=== PATIENT | female | born 1960 | race Two or more races ===

== ENCOUNTER 2017-11-06 10:01 | Outpatient (CLI) | payer OTHER ==
[~2017-11-06 10:01] MED LIST: CALCIO DEL MAR500 MG; NABUMETONE750 MG PO; ORPH100T PO
== END 2017-11-06 13:03 | disposition home or self-care (01) ==
LOC: SONOGRAMA 10:01 → MAMO-SONO 11-10 09:45
DX: N18.2 Chronic kidney disease, stage 2 (mild) (principal)

== ENCOUNTER 2018-07-09 10:55 | Outpatient (CLI) | payer OTHER | END 2018-07-09 16:50 | disposition home or self-care (01) | LOC: RAD 10:55 | DX: J45.998 Other asthma (principal); J20.8 Acute bronchitis due to other specified organisms ==

== ENCOUNTER → 2019-01-04 | Outpatient (CLI) | payer OTHER | END | disposition home or self-care (01) | LOC: MAMO-SONO 12-28 10:45 | DX: N64.4 Mastodynia (principal); Z12.31 Encounter for screening mammogram for malignant neoplasm of breast ==

== ENCOUNTER → 2019-01-12 | Outpatient (CLI) | payer OTHER | END | disposition home or self-care (01) | LOC: NUCLEAR 01-04 14:00 | DX: M81.0 Age-related osteoporosis without current pathological fracture (principal); M85.80 Other specified disorders of bone density and structure, unspecified site ==

== ENCOUNTER → 2019-03-11 | Emergency (ER) | payer OTHER ==
[~2019-03-11] VITALS: Ht 160 cm; Wt 81.2 kg
[~2019-03-11] MED LIST changes: +CARDIZEM CD120 MG; +CRESTOR10 MG; +PROMETRIUM200 MG
== END | disposition home or self-care (01) ==
LOC: ER 08:39
DX: K59.09 Other constipation (principal)

== ENCOUNTER 2020-08-01 10:37 | Outpatient (CLI) | payer OTHER | END 2020-08-01 11:02 | disposition home or self-care (01) | LOC: MAMO-SONO 10:37 | PROVIDERS: ATTEND Specialist | DX: N60.11 Diffuse cystic mastopathy of right breast (principal); N60.12 Diffuse cystic mastopathy of left breast; N95.1 Menopausal and female climacteric states; R92.2 Inconclusive mammogram ==

== ENCOUNTER 2021-05-02 10:25 | Outpatient (CLI) | payer OTHER | END 2021-05-02 10:38 | disposition home or self-care (01) | LOC: TOM 10:25 | PROVIDERS: ATTEND Family Medicine | DX: J98.8 Other specified respiratory disorders (principal); G44.89 Other headache syndrome ==

== ENCOUNTER 2021-05-24 19:16 | Emergency (ER) | payer OTHER ==
[~2021-05-24] VITALS: Ht 162.6 cm; Wt 83.9 kg
[2021-05-25] MEDS ORDERED: PEPCID AC20 MG PO (08:03)
[2021-05-25] MEDS ORDERED: LEVSIN0.125 MG PO (08:03)
[2021-05-25] MEDS ORDERED: METRONIDAZOLE500 MG PO (08:03)
[2021-05-25] MEDS ORDERED: INTESTINEX680 M2 PO (08:03)
[2021-05-25] MEDS ORDERED: PROTONIX20 MG PO (08:03)
[2021-05-25] MEDS ORDERED: CIPROFLOXACIN500 MG PO (08:03)
[2021-05-25] MEDS ORDERED: PERCOCET 5-3251 EACH PO (08:03)
[2021-05-25] MEDS ORDERED: CARAFATE1 GM PO (08:05)
== END 2021-05-25 08:16 | disposition home or self-care (01) ==
LOC: ER 19:16
DX: K57.33 Diverticulitis of large intestine without perforation or abscess with bleeding (principal)

== ENCOUNTER 2021-08-12 10:43 | Outpatient (CLI) | payer OTHER ==
[~2021-08-12 10:43] MED LIST changes: +CARAFATE1 GM PO; +CIPROFLOXACIN500 MG PO; +INTESTINEX680 M2 PO; +LEVSIN0.125 MG PO; +METRONIDAZOLE500 MG PO; +PEPCID AC20 MG PO; +PERCOCET 5-3251 EACH PO; +PROTONIX20 MG PO
== END 2021-08-12 11:00 | disposition home or self-care (01) ==
LOC: RAD 10:43
PROVIDERS: ATTEND Physical Medicine & Rehabilitation
DX: M54.59 Other low back pain (principal); M25.551 Pain in right hip; M25.552 Pain in left hip; M25.561 Pain in right knee; M25.562 Pain in left knee

== ENCOUNTER 2022-05-22 10:23 | Outpatient (CLI) | payer OTHER | END 2022-05-22 10:34 | disposition home or self-care (01) | LOC: EDBD 10:23 → SONOGRAMA 10:23 | PROVIDERS: ATTEND Internal Medicine | DX: K81.9 Cholecystitis, unspecified (principal) ==

== ENCOUNTER 2022-05-28 09:13 | Outpatient (CLI) | payer OTHER | END 2022-05-28 09:18 | disposition home or self-care (01) | LOC: NUCLEAR 09:13 | PROVIDERS: ATTEND Internal Medicine | DX: K83.9 Disease of biliary tract, unspecified (principal); K81.0 Acute cholecystitis | CPT/HCPCS: 78227; A9510 ==

== ENCOUNTER 2023-07-14 11:31 | Emergency (ER) | payer OTHER ==
[~2023-07-14] VITALS: Ht 162.6 cm; Wt 79.4 kg
[2023-07-14] MEDS ORDERED: CRESTOR5 MG (12:08)
[2023-07-14 16:37] LABS: HEMATOCRIT 39.9 % (36.0-45.00); HEMOGLOBIN 13.6 g/dL (12.0-15.00); MEAN CELL VOLUME 93.4 fL (80.00-100.00); MEAN CORPUSCULAR HEMOGLOBIN 31.9 pg (27.00-32.0); MEAN CORPUSCULAR HGB CONC 34.2 g/dl (32.0-36.0); PLATELET COUNT 280 K/uL (150-450); RED BLOOD COUNT 4.28 M/uL (4.00-6.00); RED CELL DISTRIBUTION WIDTH 13.7 % (11.5-14.5)
== END 2023-07-14 19:52 | disposition home or self-care (01) ==
LOC: ER 11:31
PROVIDERS: General Practice
DX: N76.4 Abscess of vulva (principal); I10 Essential (primary) hypertension

== ENCOUNTER 2024-07-18 10:11 | Emergency (ER) | payer OTHER ==
[~2024-07-18] VITALS: Ht 162.6 cm; Wt 81.6 kg
[~2024-07-18 10:11] MED LIST changes: +CRESTOR5 MG
[2024-07-18] MEDS ORDERED: KETOROLAC TROMETHAMINE 60 MG VIAL IM ONE (12:00)
[2024-07-18] MEDS ORDERED: ORPHENADRINE CITRATE 30 MG/ML AMPUL IM ONE (12:00)
[2024-07-18] MEDS ORDERED: NORFLEX100MG PO (12:05)
[2024-07-18] MEDS ORDERED: TRAM1TAB98 PO (12:05)
[2024-07-18] MEDS ORDERED: ORPHENADRINE CITRATE 100 MG TABLET PO ONE (13:00)
== END 2024-07-18 12:59 | disposition home or self-care (01) ==
LOC: ER 10:13
DX: M54.30 Sciatica, unspecified side (principal); M54.9 Dorsalgia, unspecified; I10 Essential (primary) hypertension

== ENCOUNTER 2024-07-18 14:56 | Outpatient (CLI) | payer OTHER ==
[~2024-07-18 14:56] MED LIST changes: +NORFLEX100MG PO; +TRAM1TAB98 PO
== END 2024-07-18 15:08 | disposition home or self-care (01) ==
LOC: MRI 14:56
PROVIDERS: ATTEND Internal Medicine
DX: M54.31 Sciatica, right side (principal); M51.17 Intervertebral disc disorders with radiculopathy, lumbosacral region
CPT/HCPCS: 72148

== ENCOUNTER 2025-02-13 11:57 | Emergency (ER) | payer OTHER ==
[~2025-02-13] VITALS: Ht 162.6 cm; Wt 81.6 kg
[2025-02-13] MEDS ORDERED: KETOROLAC TROMETHAMINE 60 MG VIAL IM STA (13:41)
[2025-02-13] MEDS ORDERED: DEXAMETHASONE SODIUM PHOSPHATE 4 MG/ML VIAL IM STA (13:41)
[2025-02-13] MEDS ORDERED: DEXAMETHASONE SODIUM PHOSPHATE 4 MG/ML VIAL ONE (13:56)
[2025-02-13] MEDS ORDERED: KETOROLAC TROMETHAMINE 60 MG VIAL IM ONE (13:56)
== END 2025-02-13 15:52 | disposition home or self-care (01) ==
LOC: ER 11:57
DX: M13.0 Polyarthritis, unspecified (principal); I10 Essential (primary) hypertension

== ENCOUNTER 2025-07-10 09:06 | Emergency (ER) | payer OTHER ==
[~2025-07-10] VITALS: Ht 162.6 cm; Wt 83.9 kg
[2025-07-10] MEDS ORDERED: DEXAMETHASONE SODIUM PHOSPHATE 4 MG/ML VIAL IM ONE (10:30)
[2025-07-10] MEDS ORDERED: KETOROLAC TROMETHAMINE 60 MG VIAL IM ONE ×2 (10:30→10:35)
[2025-07-10] MEDS ORDERED: DEXAMETHASONE SODIUM PHOSPHATE 4 MG/ML VIAL ONE (10:36)
[2025-07-10 11:29] LABS: BASO % 0.8 % (0.1-1.2); EOS # 0.17 (0.04-0.54); EOS % 3.2 % (0.7-7.0); LYMPH # 1.97 (1.18-3.74); LYMPH % 37.5 % (19.3-53.1); MEAN PLATELET VOLUME 9.90 fl (9.4-12.4); MONO # 0.45 (0.24-0.82); MONO % 8.6 % (4.7-12.5); NEUT # 2.62 (1.56-6.13); NEUT % 49.7 % (34.0-71.1); RED CELL DISTRIBUTION WIDTH 13.1 % (11.6-14.4)
[2025-07-10] MEDS ORDERED: NAPROXEN500 MG PO (12:02)
[2025-07-10] MEDS ORDERED: CYCLOBENZAPRINE10 MG PO (12:02)
[2025-07-10 12:07] LABS: D DIMER 0.41 MG/L
[2025-07-10 12:20] LABS: ALT/SGPT 26.0 U/L (12-78); AST/SGOT 18.0 U/L (15-37); BILIRUBIN TOTAL 0.6 mg/dL (0.3-1.2); BUN CREA RATIO 24.0 (7.0-25.0); CREATININE SERUM 0.58 mg/dL (0.55-1.02); GFR 104.66; GLOBULINA 3.3 G/DL (2.4-3.5); GLUCOSE FASTING 94.0 mg/dL (65-100); OSMOLALITY SERUM 283.0 MOSM/KG (275-295)
== END 2025-07-10 12:34 | disposition home or self-care (01) ==
LOC: ER 09:07
DX: M54.16 Radiculopathy, lumbar region (principal); M51.369 Other intervertebral disc degeneration, lumbar region without mention of lumbar back pain or lower extremity pain; I10 Essential (primary) hypertension

== ENCOUNTER 2025-07-10 12:47 | Outpatient (CLI) | payer OTHER ==
[~2025-07-10 12:47] MED LIST changes: +CYCLOBENZAPRINE10 MG PO; +NAPROXEN500 MG PO
== END 2025-07-10 12:50 | disposition home or self-care (01) ==
LOC: RAD 12:47
DX: M79.645 Pain in left finger(s) (principal)

== ENCOUNTER 2025-08-08 12:13 | Outpatient (CLI) | payer OTHER | END 2025-08-08 12:34 | disposition home or self-care (01) | LOC: MRI 12:13 | DX: M54.17 Radiculopathy, lumbosacral region (principal) | CPT/HCPCS: 72148 ==

== ENCOUNTER 2025-08-23 14:14 | Emergency (ER) | payer OTHER ==
[~2025-08-23] VITALS: Ht 162.6 cm; Wt 79.4 kg
[2025-08-23] MEDS ORDERED: ORPHENADRINE CITRATE 30 MG/ML AMPUL IM STA (17:27)
[2025-08-23] MEDS ORDERED: DEXAMETHASONE SODIUM PHOSPHATE 4 MG/ML VIAL IM STA (17:27)
[2025-08-23] MEDS ORDERED: KETOROLAC TROMETHAMINE 30 MG VIAL IM ONE (17:30)
[2025-08-23] MEDS ORDERED: ORPHENADRINE CITRATE 30 MG/ML AMPUL ONE (17:38)
[2025-08-23] MEDS ORDERED: KETOROLAC TROMETHAMINE 30 MG VIAL ONE (17:38)
[2025-08-23] MEDS ORDERED: DEXAMETHASONE SODIUM PHOSPHATE 4 MG/ML VIAL ONE (17:38)
== END 2025-08-23 18:34 | disposition home or self-care (01) ==
LOC: ER 14:14
DX: M54.30 Sciatica, unspecified side (principal); M54.16 Radiculopathy, lumbar region; M54.9 Dorsalgia, unspecified; M54.59 Other low back pain; R20.0 Anesthesia of skin